=== PATIENT | female | born 1955 | race African-American/Black ===

== ENCOUNTER → 2018-09-26 | Outpatient (CLI) | payer OTHER ==
[2006-03-03 09:10] VITALS: TEMP 97.5
[~2018-09-26] MED LIST: ADALAT; HCTZ; HCTZ 25MG TAB25 MG PO; LIPITOR20 MG PO; PRILOSEC10 MG PO; RT ADVAIR 528 DISKUS IH; XOPENEX 3 ML3 M1 IH
== END ==
LOC: MC.RAD 09-20 14:45
DX: Z12.31 Encounter for screening mammogram for malignant neoplasm of breast (principal); R92.0 Mammographic microcalcification found on diagnostic imaging of breast

== ENCOUNTER → 2018-09-28 | Outpatient (CLI) | payer OTHER ==
[2006-03-03 09:10] VITALS: TEMP 97.5
== END ==
LOC: MC.RAD 08:23
DX: R92.0 Mammographic microcalcification found on diagnostic imaging of breast (principal)

== ENCOUNTER → 2018-10-05 | Outpatient (CLI) | payer OTHER ==
[2006-03-03 09:10] VITALS: TEMP 97.5
== END ==
LOC: MC.RAD 06:56
DX: R92.0 Mammographic microcalcification found on diagnostic imaging of breast (principal); Z98.82 Breast implant status

== ENCOUNTER → 2020-01-09 | Outpatient (CLI) | payer OTHER, MEDICARE ==
[2006-03-03 09:10] VITALS: TEMP 97.5
== END ==
LOC: MC.RAD 07:00
DX: Z12.31 Encounter for screening mammogram for malignant neoplasm of breast (principal); Z98.82 Breast implant status

== ENCOUNTER → 2021-01-08 | Outpatient (CLI) | payer OTHER, MEDICARE ==
[2006-03-03 09:10] VITALS: TEMP 97.5
== END ==
LOC: MC.RAD 14:56
DX: Z12.31 Encounter for screening mammogram for malignant neoplasm of breast (principal); Z98.82 Breast implant status

== ENCOUNTER → 2022-01-09 | Outpatient (CLI) | payer OTHER, MEDICARE | LOC: MC.RAD 12:45 | DX: Z12.31 Encounter for screening mammogram for malignant neoplasm of breast (principal) ==